=== PATIENT | male | born 1990 | race Caucasian/White ===

== ENCOUNTER 2018-03-22 09:49 | Emergency (ER) | payer OTHER ==
[2018-03-22 09:59] VITALS: BP 153/83; PULSE 59; RESP 18; TEMP 98.5
[2018-03-22] MEDS ORDERED: LIDOCAINE 1% INJ 10MG/ML (20 ML MDV) SQ ONE (10:28)
--- NOTE | 2018-03-22 10:33 | ED ---
Wound/Laceration HPI - General Chief Complaint: Wound/Laceration Stated Complaint: Hand laceration Time Seen by Provider: 03/22/18 10:03 Source: patient Mode of arrival: ambulatory Limitations: no limitations - History of Present Illness Initial Comments: 27-year-old male with no past medical history presents today for chief complaint of laceration to the left webspace between the thumb and index finger. 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 He does not think that there is any foreign body was not sure, patient states his tetanus is up-to-date as of October 2017. Patient denies any numbness, tingling, paresthesias, limited range of motion of the left thumb or index finger, muscle weakness or loss of sensation. Patient denies any coagulopathies. Patient presents emergency department vital signs stable - Related Data Home Medications Medication Instructions Recorded Confirmed Acetaminophen Tab [Tylenol Tab] 500 - 1,000 mg PO Q6H PRN 07/21/17 03/22/18 Allergies Allergy/AdvReac Type Severity Reaction Status Date / Time Penicillins Allergy Rash/Hives Verified 03/22/18 10:32 Review of Systems ROS Statement: Those systems with pertinent positive or pertinent negative responses have been documented in the HPI. ROS Other: All systems not noted in ROS Statement are negative. Constitutional: Denies: fever, chills ENT: Denies: hearing loss Respiratory: Denies: as per HPI, cough Cardiovascular: Denies: chest pain, palpitations Endocrine: Denies: fatigue Gastrointestinal: Denies: abdominal pain, nausea, vomiting Genitourinary: Denies: urgency, dysuria Musculoskeletal: Denies: back pain Skin: Reports: as per HPI, lesions. Denies: rash, change in color Neurological: Denies: headache, weakness, numbness, paresthesias, confusion, abnormal gait Past Medical History Additional Past Medical History / Comment(s): migraines History of Any Multi-Drug Resistant Organisms: None Reported Past Surgical History: No Surgical Hx Reported Past Psychological History: No Psychological Hx Reported Smoking Status: Never smoker Past Alcohol Use History: None Reported Past Drug Use History: None Reported General Exam - General Exam Comments Initial Comments: General: The patient is awake and alert, in no distress, and does not appear acutely ill. Eye: Pupils are equal, round and reactive to light, extra-ocular movements are intact. No nystagmus. There is normal conjunctiva bilaterally. No signs of icterus. Ears, nose, mouth and throat: There are moist mucous membranes and no oral lesions. Neck: The neck is supple, there is no tenderness or JVD. Cardiovascular: There is a regular rate and rhythm. No murmur, rub or gallop is appreciated. Respiratory: Lungs are clear to auscultation, respirations are non-labored, breath sounds are equal. No wheezes, stridor, rales, or rhonchi. Musculoskeletal: Full Normal ROM, no tenderness at MCP, PIP and DIP of 5 digits of hands b/l with strength 5/5. Sensation intact of the hands b/l. Pulses equal bilaterally 2+. Capillary refill <2 seconds. Neurological: A&O x 3. CN II-XII intact, There are no obvious motor or sensory deficits. Coordination appears grossly intact. Speech is normal. Skin: Skin is warm and dry and no rashes. 1.5 cm superficial laceration to the left inner space between the thumb and index. No evidence of exposure of underlying structures or FB. Psychiatric: Cooperative, appropriate mood & affect, normal judgment. Limitations: no limitations Course Vital Signs 03/22/18 09:57 Temperature 98.5 F Pulse Rate 59 L Respiratory 18 Rate Blood Pressure 153/83 O2 Sat by Pulse 100 Oximetry Medical Decision Making - Medical Decision Making XR obtained revealing no radiopaque FB. Laceration wound edges approximated with 1 simple interrupted suture. tetanus up-to-date. Case discussed in detail Dr. Krishnamurthy. Patient discharged in stable condition, with instructions for suture removal in 7-10 days. Educated on signs and symptoms of infection, instructed to return to emergency department if these arise. patient is to follow-up with primary care physician one to 2 days for wound check Disposition Clinical Impression: Laceration of left hand Disposition: HOME SELF-CARE Condition: Good Instructions: Laceration (ED), Care For Your Stitches (ED) Additional Instructions: Please use over the counter pain medication as discussed. Please follow-up with family doctor in the next 2 days of symptoms have not improved. Please return to the ED for suture removal in 7-10 days. Please return to emergency room if the symptoms increase or worsen or for any other concerns. Is patient prescribed a controlled substance at d/c from ED?: No Referrals: Johanny,Grace, MD [Primary Care Provider] - 1-2 days Time of Disposition: 11:54
--- NOTE | 2018-03-22 11:18 | XR ---
Left hand HISTORY: Trauma, laceration 2 views of the left hand Bone mineralization, joint spaces and alignment are maintained. No fracture or dislocation. No radiop aque foreign body. IMPRESSION: No acute abnormalities evident.
== END 2018-03-22 12:08 | disposition home or self-care (01) ==
LOC: EC 09:49
DX: S61.412A Laceration without foreign body of left hand, initial encounter (principal); Z88.0 Allergy status to penicillin; W26.8XXA Contact with other sharp object(s), not elsewhere classified, initial encounter; Y93.89 Activity, other specified
CPT/HCPCS: 73120; 99283; 12001; J2001

== ENCOUNTER → 2018-09-27 | Outpatient (CLI) | payer OTHER ==
--- NOTE | 2018-09-27 16:12 | XR ---
Right knee HISTORY: Pain 3 views of the right knee Bone mineralization, joint spaces and alignment are maintained. No fracture or dislocation. Suprapate llar increased density is present. IMPRESSION: Possible small joint effusion.
== END | disposition home or self-care (01) ==
LOC: RADXRYALE 15:56
PROVIDERS: ATTEND Internal Medicine
DX: M25.561 Pain in right knee (principal)

== ENCOUNTER 2019-08-14 11:57 | Emergency (ER) | payer OTHER ==
[2019-08-14 12:13] VITALS: RESP 18
[2019-08-14] MEDS ORDERED: FAMOTIDINE 20 MG/2 ML VIAL IV STA (12:25)
[2019-08-14] MEDS ORDERED: methylPREDNISolone SOD SUCCI 125 MG/2 ML VIAL IV STA (12:25)
--- NOTE | 2019-08-14 12:29 | ED ---
Allergic Reaction HPI - General Chief complaint: Allergic Reaction Stated complaint: allergic reaction Time Seen by Provider: 08/14/19 12:16 Source: patient Mode of arrival: ambulatory Limitations: no limitations - History of Present Illness Initial Comments: Patient is a 28-year-old male presenting to the emergency department with complaints of a possible ALLERGIC reaction happened just prior to arrival. Patient states he ate a protein bar and then started having a pressure feeling on the top of his stomach and then started noticing a red rash develop on his back. Patient states he took 50 mg of Benadryl and waited about 15 minutes however his red rash increased so he decided to come to the ER. Patient states he has had smaller reactions in the past although he is unsure of what he is ALLERGIC to. Patient denies any trouble breathing, chest pains, nausea, vomiting. Patient has no other complaints at this time. He has no other pertinent past medical history. Upon arrival to the ER, vital signs are stable, patient looks well. - Related Data Home Medications Medication Instructions Recorded Confirmed Acetaminophen Tab [Tylenol Tab] 500 - 1,000 mg PO Q6H PRN 07/21/17 03/22/18 Previous Rx's Medication Instructions Recorded methylPREDNISolone [Medrol Dose 4 mg PO DIRECTED #1 pack 08/14/19 Pack] Allergies Allergy/AdvReac Type Severity Reaction Status Date / Time Penicillins Allergy Rash/Hives Verified 08/14/19 12:09 Review of Systems ROS Statement: Those systems with pertinent positive or pertinent negative responses have been documented in the HPI. ROS Other: All systems not noted in ROS Statement are negative. Past Medical History Additional Past Medical History / Comment(s): migraines History of Any Multi-Drug Resistant Organisms: None Reported Past Surgical History: No Surgical Hx Reported Past Psychological History: No Psychological Hx Reported Smoking Status: Never smoker Past Alcohol Use History: None Reported Past Drug Use History: None Reported General Exam - General Exam Comments Initial Comments: GENERAL: Well-appearing, well-nourished and in no acute distress. HEAD: Atraumatic, normocephalic. EYES: Pupils equal round and reactive to light, extraocular movements intact, sclera anicteric, conjunctiva are normal. ENT: TMs normal, nares patent, oropharynx clear without exudates. Moist mucous membranes. NECK: Normal range of motion, supple without lymphadenopathy or JVD. LUNGS: Breath sounds clear to auscultation bilaterally and equal. No wheezes rales or rhonchi. HEART: Regular rate and rhythm without murmurs, rubs or gallops. ABDOMEN: Soft, nontender, normoactive bowel sounds. No guarding, no rebound. No masses appreciated. : Deferred EXTREMITIES: Normal range of motion, no pitting or edema. No clubbing or cyanosis. NEUROLOGICAL: Normal speech, normal gait. PSYCH: Normal mood, normal affect. SKIN: Warm, Dry, normal turgor. Erythematous macule rash on right side of neck extending into trunk area. Patient also has pruritus over her entire body. Limitations: no limitations Course Vital Signs 08/14/19 08/14/19 12:09 13:17 Temperature 98.6 F 98.0 F Pulse Rate 84 60 Respiratory 18 18 Rate Blood Pressure 174/112 149/93 O2 Sat by Pulse 99 98 Oximetry Medical Decision Making - Medical Decision Making Patient is a 28-year-old male presenting with a possible ALLERGIC reaction to happen just prior to arrival. He is unsure what he is ALLERGIC to. Patient took 50 mg of Benadryl before arrival. Vital signs stable upon arrival. Patient has mild erythematous rash in the right side of his neck extending into the front of his truck. Patient was given IV Solu-Medrol as well as Pepcid and reported improvement in his symptoms. Vital signs remained stable. Patient stable for discharge at this time. Patient was given prescription for a steroid Dosepak to start tomorrow if symptoms persist. He will continue with Benadryl as needed. Patient will follow up with his PCP. He is in agreement with this plan of care. Return parameters were discussed with the patient and he verbalized understanding. Case discussed with Dr. Nicole. Disposition Clinical Impression: Allergic reaction Disposition: HOME SELF-CARE Condition: Stable Instructions (If sedation given, give patient instructions): General Allergic Reaction (ED) Additional Instructions: Return to the ER for any worsened symptoms. Take steroid pack as prescribed. COntinue with benadryl as needed Prescriptions: methylPREDNISolone [Medrol Dose Pack] 4 mg PO DIRECTED #1 pack Is patient prescribed a controlled substance at d/c from ED?: No Referrals: Grace Orlando MD [Primary Care Provider] - 1-2 days
[2019-08-14 13:18] VITALS: BP 149/93; PULSE 60; TEMP 98
== END 2019-08-14 13:38 | disposition home or self-care (01) ==
LOC: EC 11:57
DX: T78.40XA Allergy, unspecified, initial encounter (principal); R21 Rash and other nonspecific skin eruption; Z88.0 Allergy status to penicillin
CPT/HCPCS: 99283; 96374; 96375; J2930

== ENCOUNTER → 2020-03-26 | Outpatient (CLI) | payer BC ==
--- NOTE | 2020-03-26 08:53 | US ---
EXAMINATION TYPE: US abdomen complete DATE OF EXAM: 03/26/2020 COMPARISON: NONE CLINICAL HISTORY: R10.11 Right upper quad pain. EXAM MEASUREMENTS: Liver Length: 11.6 cm Gallbladder Wall: 0.1 cm CBD: 0.2 cm Spleen: 13.2 cm Right Kidney: 9.6 x 3.5 x 5.1 cm Left Kidney: 9.9 x 4.5 x 4.8 cm Pancreas: partially obscured by bowel gas, portions visualized wnl Liver: wnl Gallbladder: wnl Evidence for sonographic Askew's sign: no CBD: wnl Spleen: enlarged Right Kidney: No hydronephrosis or masses seen Left Kidney: No hydronephrosis or masses seen Upper IVC: wnl Abd Aorta: wnl IMPRESSION: 1. Borderline splenomegaly. 2. No evidence of gallstones.
== END | disposition home or self-care (01) ==
LOC: RADUSWWP 08:13
PROVIDERS: ATTEND Internal Medicine
DX: R10.11 Right upper quadrant pain (principal)
CPT/HCPCS: 76700

== ENCOUNTER 2020-04-08 10:08 | Day surgery (SDC) | payer BC ==
[2020-04-04 11:39] VITALS: BMI 28.1
[2020-04-08 10:22] VITALS: RESP 16; TEMP 98.3
[2020-04-08] MEDS ORDERED: LACTATED RINGERS 1,000 ML IV ONE (10:46)
[2020-04-08] MEDS ORDERED: LIDOCAINE 1% (10MG/ML) FOR IV START INTRADERMA ONE (10:47)
[2020-04-08] MEDS ORDERED: PROPOFOL 10 MG/ML 20 ML VIAL IV ONE (10:58)
[2020-04-08] MEDS ORDERED: LIDOCAINE 1% INJ 10MG/ML (20 ML MDV) ONE (10:58)
--- NOTE | 2020-04-08 11:22 | P.PCN ---
Date of Procedure: 04/08/20 Description of Procedure: BRIEF HISTORY: Patient is a 29-year-old male presenting for outpatient esophagogastroduodenoscopy for evaluation of GERD.. Patient reports symptoms of burning epigastric pain, nausea and decreased oral intake. Recently started on omeprazole daily and famotidine at night PROCEDURE PERFORMED: Esophagogastroduodenoscopy with biopsy. PREOPERATIVE DIAGNOSIS: GERD, epigastric abdominal pain. ESTIMATED BLOOD LOSS: Minimal. IV sedation per anesthesia. PROCEDURE: After informed consent was obtained, the patient was brought into the endoscopy unit. IV sedation was administered by Anesthesia under continuous monitoring. Initially the Olympus GIF-190 video endoscope was inserted into the mouth. Esophagus intubated without any difficulty. It was gradually advanced into the stomach and duodenum and carefully examined. The bulb and the second part of the duodenum appeared normal, with biopsies taken to rule out celiac sprue . The scope at this time was withdrawn to the stomach, adequately insufflated with air, and upon careful examination, mucosa of the antrum, body, cardia and the fundus appeared normal, except for some mild scattered erythema in the antrum and body suggestive of mild gastritis with positive . The scope was then withdrawn into the esophagus. The GE junction was located at 39 cm from the incisors, with biopsies taken for evaluation of reflux esophagitis. The esophagus appeared normal, with biopsies taken of the midesophagus . There were no erosions or ulcerations seen and the patient tolerated the procedure well. IMPRESSION: 1. Mild gastritis, antrum body biopsy. 2. Biopsies of the GE junction, duodenum and midesophagus. RECOMMENDATIONS: The findings of this examination were discussed with the patient and his . Okay to resume diet. Okay to resume medications. Await pathology from biopsies. Continue antireflux measures.
[2020-04-08 12:13] VITALS: BP 119/76; PULSE 51
== END 2020-04-08 12:05 | disposition home or self-care (01) ==
LOC: ORWHC2ENDO 10:08
PROVIDERS: ATTEND Internal Medicine
DX: K21.0 Gastro-esophageal reflux disease with esophagitis (principal); K29.50 Unspecified chronic gastritis without bleeding; K22.8 Other specified diseases of esophagus; Z88.0 Allergy status to penicillin; Z79.899 Other long term (current) drug therapy; Z98.890 Other specified postprocedural states; Z86.69 Personal history of other diseases of the nervous system and sense organs
CPT/HCPCS: 88305; 88342; 43239; J2001; J2704

== ENCOUNTER → 2020-07-15 | Outpatient (CLI) | payer BC ==
[2020-07-16 00:50] LABS: Gliadin AB IgG, Deaminated NEGATIVE (NEGATIVE)
[2020-07-18 16:58] LABS: Gliadin AB IgA, Deaminated NEGATIVE (NEGATIVE); Gliadin AB IgA, Unit <0.2 U/mL
== END | disposition home or self-care (01) ==
LOC: LABWHC1 13:32
PROVIDERS: ATTEND Family Medicine
DX: T78.1XXA Other adverse food reactions, not elsewhere classified, initial encounter (principal)
CPT/HCPCS: 36415; 83516